=== PATIENT | male | born 1985 | race Caucasian/White ===

== ENCOUNTER 2018-12-21 13:15 | Observation (INO) | payer BC ==
[~2018-12-21 13:15] MED LIST: DEXAMETHASONE SOD PHOSPHATE INJ 4 MG/1 ML VIAL ONE; GLYCOPYRROLATE 1 MG/5 ML SYRINGE ONE; NEOSTIGMINE METHYLSULFATE 10 MG/10 ML VIAL ONE; ONDANSETRON HCL INJ/PF 4 MG/2 ML SDV ONE; ROCURONIUM BROMIDE INJ 50 MG/5 ML VIAL IV ONE; SUCCINYLCHOLINE CHLORIDE INJ 200 MG/10 ML VIAL ONE
[2018-12-21] MEDS ORDERED: NORMAL SALINE 1000 ML 1,000 ML IV ONE (15:30)
[2018-12-21] MEDS ORDERED: ONDANSETRON HCL INJ/PF 4 MG/2 ML SDV IV ONE ×2 (15:30→20:17)
[2018-12-21] MEDS ORDERED: MORPHINE SULFATE 10 MG/ML INJ IV ONE ×2 (15:31→20:17)
--- NOTE | 2018-12-21 15:33 | ER Document Report ---
Addendum entered and electronically signed by SLIM DEL ROSARIO PA-C 12/21/18 17:29: History of Present Illiness - HPI HPI: After reassessing the patient's general abdominal pain after labs resulted with a leukocytosis of 13.6. Patient states his pain is now moved to his right lower quadrant. Patient is denying any pain left lower quadrant or periumbilical at this time. Discussed use of CT imaging at this time. Patient is agreeable with plan. Original Note: ED Medical Screen (RME) - General Chief Complaint: Abdominal Pain Stated Complaint: ABDOMINAL PAIN Time Seen by Provider: 12/21/18 15:30 Notes: Patient is a 33-year-old male presents to the emergency department for generalized left periumbilical abdominal pain that started last night. Patient states he is nauseated but has not vomited. Patient states initially he felt as though he was constipated. Stating he took aakw-dxu-[id number] laxatives. States he was able to have a bowel movement today. Patient does have a history of colitis and states the left periumbilical abdominal pain does feel like the same pain when he had colitis. ABDOMEN: Soft, Non-distended. Bowel sounds present in all 4 quadrants. Generalized periumbilical and left periumbilical to left lower abdominal pain no McBurney's point tenderness, no Barfield sign noted I have greeted and performed a rapid initial assessment of this patient. A comprehensive ED assessment and evaluation of the patient, analysis of test results and completion of the medical decision making process will be conducted by additional ED providers. TRAVEL OUTSIDE OF THE [place] IN LAST 30 DAYS: No - Related Data Allergies/Adverse Reactions: No Known Allergies Allergy (Verified 12/21/18 13:17) Past Medical History - Social History Chew tobacco use (# tins/day): No Frequency of alcohol use: Occasional Drug Abuse: Marijuana Renal/ Medical History: Denies: Hx Peritoneal Dialysis Psychiatric Medical History: Reports: Hx Depression - anxiety Physical Exam - Vital signs Vitals: Temp Pulse Resp BP Pulse Ox 97.4 F 77 18 126/76 H 98 12/21/18 13:30 12/21/18 13:30 12/21/18 13:30 12/21/18 13:30 12/21/18 13:30 Course - Vital Signs Vital signs: Temp Pulse Resp BP Pulse Ox 97.4 F 77 18 126/76 H 98 12/21/18 13:30 12/21/18 13:30 12/21/18 13:30 12/21/18 13:30 12/21/18 13:30
[2018-12-21 16:52] LABS: APPEARANCE,URINE CLEAR; BILIRUBIN,URINE NEGATIVE (NEGATIVE); COLOR,URINE STRAW; GLUCOSE, URINE NEGATIVE (NEGATIVE); KETONES,URINE 20 mg/dL (NEGATIVE); LEUKOCYTE ESTERASE,URINE NEGATIVE (NEGATIVE); NITRITE,URINE NEGATIVE (NEGATIVE); PROTEIN,URINE NEGATIVE (NEGATIVE); URINE SPECIFIC GRAVITY 1.005; UROBILINOGEN,URINE NEGATIVE mg/dL (<2.0)
[2018-12-21 16:54] LABS: ABSOLUTE EOSINOPHILS # (AUTO) 0.1 10^3/uL (0.0-0.6); ABSOLUTE LYMPHOCYTES (AUTO) 1.7 10^3/uL (0.5-4.7); ABSOLUTE MONOCYTES (AUTO) 0.7 10^3/uL (0.1-1.4); ABSOLUTE NEUT (AUTO) 11.1 10^3/uL (1.7-8.2); BASOPHILS % (AUTO) 0.3 % (0-2); EOSINOPHILS % (AUTO) 0.7 % (0-6); HEMATOCRIT 47.5 % (37.9-51.0); HEMOGLOBIN 16.4 g/dL (13.5-17.0); LYMPHOCYTES % (AUTO) 12.5 % (13-45); MEAN CORPUSCULAR HEMOGLOBIN 28.8 pg (27.0-33.4); MEAN CORPUSCULAR HGB CONC 34.5 g/dL (32.0-36.0); MEAN CORPUSCULAR VOLUME 83 fl (80-97); MONOCYTES % (AUTO) 4.9 % (3-13); PLATELET COUNT 239 10^3/uL (150-450); RED CELL DISTRIBUTION WIDTH 12.5 % (11.5-14.0); SEGMENTED NEUTROPHILS % (AUTO) 81.6 % (42-78); TOTAL CELLS COUNTED % (AUTO) 100 %; WHITE BLOOD COUNT 13.6 10^3/uL (4.0-10.5)
[2018-12-21 17:11] LABS: ALANINE AMINOTRANSFERASE 12 U/L (21-72); ALBUMIN 5.3 g/dL (3.5-5.0); ALKALINE PHOSPHATASE 81 U/L (38-126); ANION GAP 12 (5-19); ASPARTATE AMINO TRANSFERASE 22 U/L (17-59); BILIRUBIN,DIRECT 0.3 mg/dL (0.0-0.4); BILIRUBIN,TOTAL 1.7 mg/dL (0.2-1.3); BLOOD UREA NITROGEN 8 mg/dL (7-20); CALCIUM 9.9 mg/dL (8.4-10.2); CARBON DIOXIDE 28 mmol/L (22-30); CHLORIDE 103 mmol/L (98-107); GLUCOSE 96 mg/dL (75-110); POTASSIUM 4.3 mmol/L (3.6-5.0); SODIUM 143.4 mmol/L (137-145); TOTAL PROTEIN 8.4 g/dL (6.3-8.2)
--- NOTE | 2018-12-21 18:09 | RADIOLOGY REPORT (SQ) ---
EXAM DESCRIPTION: CT ABD/PELVIS WITH IV ONLY COMPLETED DATE/TIME: 12/21/2018 5:45 pm REASON FOR STUDY: RLQ pain COMPARISON: None. TECHNIQUE: CT scan of the abdomen and pelvis performed using helical scanning technique with dynamic intravenous contrast injection. No oral contrast. Images reviewed with lung, soft tissue, and bone windows. Reconstructed coronal and sagittal MPR images reviewed. Delayed images for evaluation of the urinary system also acquired. All images stored on PACS. All CT scanners at this facility use dose modulation, iterative reconstruction, and/or weight based d osing when appropriate to reduce radiation dose to as low as reasonably achievable (ALARA). [facility]: Dose Right [facility]: CareDose [facility]: Dose Right [facility]: Teradose 4D [facility]: [place] CONTRAST TYPE AND DOSE: contrast/concentration: Isovue 350.00 mg/ml; Total Contrast Delivered: 91.0 ml; Total Saline Delivered: 47.0 ml RENAL FUNCTION: BUN 8 creatinine 0.84 RADIATION DOSE: CT Rad equipment meets quality standard of care and radiation dose reduction techniq ues were employed. CTDIvol: 13.2 - 17.4 mGy. DLP: 1746 mGy-cm.. LIMITATIONS: None. FINDINGS: LOWER CHEST: No significant findings. No nodules or infiltrates. LIVER: Normal size. No masses. No dilated ducts. SPLEEN: Normal size. No focal lesions. PANCREAS: No masses. No significant calcifications. No adjacent inflammation or peripancreatic fluid collections. Pancreatic duct not dilated. GALLBLADDER: No identified stones by CT criteria. No inflammatory changes to suggest cholecystitis. ADRENAL GLANDS: No significant masses or asymmetry. RIGHT KIDNEY AND URETER: No solid masses. No significant calcifications. No hydronephrosis or hyd roureter. LEFT KIDNEY AND URETER: No solid masses. No significant calcifications. No hydronephrosis or hydr oureter. AORTA AND VESSELS: No aneurysm. No dissection. Renal arteries, SMA, celiac without stenosis. RETROPERITONEUM: No retroperitoneal adenopathy, hemorrhage or masses. BOWEL AND PERITONEAL CAVITY: No masses or inflammatory changes. No free fluid or peritoneal masses. APPENDIX: Not identified. PELVIS: No mass. No free fluid. Normal bladder. ABDOMINAL WALL: No masses. No hernias. BONES: No significant or acute findings. OTHER: No other significant finding. IMPRESSION: NO SIGNIFICANT OR ACUTE FINDING IN THE ABDOMEN OR PELVIS ON CT SCAN WITH IV CONTRAST. TECHNICAL DOCUMENTATION: JOB ID: [id number] Quality ID # [id number]: Final reports with documentation of one or more dose reduction techniques (e.g., Au tomated exposure control, adjustment of the mA and/or kV according to patient size, use of iterative reconstruction technique) 2010 [employer]- All Rights Reserved Reading location - IP/workstation name: [email or web address]
[2018-12-21] MEDS ORDERED: RINGERS SOLUTION,LACTATED 1,000 ML IV ONE (19:15)
--- NOTE | 2018-12-21 19:57 | PDOC H&P ---
History of Present Illness Patient complains of: Abdominal pain History of Present Illness: MARY JO BATRES is a 33 year old male Is brought to the emergency department by ground transportation complaining a of a 1 day history of abdominal pain. This is associated with anorexia and some nausea but no vomiting. Patient thought he was constipated took laxatives without improvement. The pain was initially lower quadrant and periumbilical then radiated to the right lower quadrant. Patient was seen in the emergency department where he was found to have significant right lower quadrant tenderness and a leukocytosis of 13,000. A CT scan of the abdomen and pelvis was performed with no oral contrast which was interpreted as no significant pathology. Because of persisting right lower quadrant tenderness despite rece iving pain medication earlier in the afternoon, the emergency department consulted Dr. Hunt who evaluated the CT scan and thought that in fact the appendix was enlarged in a retrocecal position. He evaluated the patient and felt the patient did have acute appendicitis and recommended admission and operation. Past Medical History Past Medical History: Anxiety Psychiatric Medical History: Reports: Depression - anxiety Past Surgical History Past Surgical History: Reports: None Social History Smoking Status: Current Every Day Smoker Hx Recreational Drug Use: No Hx Prescription Drug Abuse: No Family History Parental Family History Reviewed: Yes Children Family History Reviewed: Yes Sibling(s) Family History Reviewed.: Yes Medication/Allergy Home Medications: Fluoxetine HCl 10 mg PO BID 12/21/18 Allergies/Adverse Reactions: No Known Allergies Allergy (Verified 12/21/18 13:17) Review of Systems Constitutional: PRESENT: as per HPI Eyes: ABSENT: visual disturbances Ears: ABSENT: hearing changes Genitourinary: ABSENT: dysuria, hematuria Musculoskeletal: ABSENT: joint swelling Integumentary: ABSENT: rash, wounds Neurological: ABSENT: abnormal gait, abnormal speech, confusion, dizziness, focal weakness, syncope Hematologic/Lymphatic: ABSENT: easy bleeding, easy bruising Physical Exam Vital Signs: Temp Pulse Resp BP Pulse Ox 97.4 F 77 18 126/76 H 98 12/21/18 13:30 12/21/18 13:30 12/21/18 13:30 12/21/18 13:30 12/21/18 13:30 Intake & Output 12/20/18 12/21/18 12/22/18 06:59 06:59 06:59 Intake Total 1999 Balance 1999 Weight 96.5 kg General appearance: PRESENT: mild distress, other - Anxious Head exam: PRESENT: normocephalic Eye exam: PRESENT: EOMI Mouth exam: PRESENT: dry mucosa Neck exam: PRESENT: full ROM Respiratory exam: PRESENT: clear to auscultation nishant Cardiovascular exam: PRESENT: RRR Pulses: PRESENT: normal carotid pulses, normal radial pulses, normal femoral pulses GI/Abdominal exam: PRESENT: other - Soft not distended right lower quadrant tenderness with guarding Rectal exam: PRESENT: deferred, other Extremities exam: PRESENT: full ROM Musculoskeletal exam: PRESENT: full ROM Neurological exam: PRESENT: oriented to person, oriented to place, oriented to time, oriented to situation Psychiatric exam: PRESENT: appropriate affect Results Laboratory Results: 12/21/18 16:19 12/21/18 16:19 12/21/18 12/21/18 12/21/18 16:19 16:19 16:19 WBC 13.6 H RBC 5.70 H Hgb 16.4 Hct 47.5 MCV 83 MCH 28.8 MCHC 34.5 RDW 12.5 Plt Count 239 Seg Neutrophils % 81.6 H Lymphocytes % 12.5 L Monocytes % 4.9 Eosinophils % 0.7 Basophils % 0.3 Absolute Neutrophils 11.1 H Absolute Lymphocytes 1.7 Absolute Monocytes 0.7 Absolute Eosinophils 0.1 Absolute Basophils 0.0 Sodium 143.4 Potassium 4.3 Chloride 103 Carbon Dioxide 28 Anion Gap 12 BUN 8 Creatinine 0.84 Est GFR ( Amer) > 60 Est GFR (Non-Af Amer) > 60 Glucose 96 Calcium 9.9 Total Bilirubin 1.7 H AST 22 ALT 12 L Alkaline Phosphatase 81 Total Protein 8.4 H Albumin 5.3 H Lipase Urine Color STRAW Urine Appearance CLEAR Urine pH 5.0 Ur Specific [place] 1.005 Urine Protein NEGATIVE Urine Glucose (UA) NEGATIVE Urine Ketones 20 H Urine Blood SMALL H Urine Nitrite NEGATIVE Ur Leukocyte Esterase NEGATIVE Urine WBC (Auto) 0 Urine RBC (Auto) 0 12/21/18 16:19 WBC RBC Hgb Hct MCV MCH MCHC RDW Plt Count Seg Neutrophils % Lymphocytes % Monocytes % Eosinophils % Basophils % Absolute Neutrophils Absolute Lymphocytes Absolute Monocytes Absolute Eosinophils Absolute Basophils Sodium Potassium Chloride Carbon Dioxide Anion Gap BUN Creatinine Est GFR ( Amer) Est GFR (Non-Af Amer) Glucose Calcium Total Bilirubin AST ALT Alkaline Phosphatase Total Protein Albumin Lipase 72.2 Urine Color Urine Appearance Urine pH Ur Specific [place] Urine Protein Urine Glucose (UA) Urine Ketones Urine Blood Urine Nitrite Ur Leukocyte Esterase Urine WBC (Auto) Urine RBC (Auto) Impressions: Abdomen/Pelvis CT 12/21/18 17:25 IMPRESSION: NO SIGNIFICANT OR ACUTE FINDING IN THE ABDOMEN OR PELVIS ON CT SCAN WITH IV CONTRAST. Assessment & Plan - Diagnosis (1) Acute abdominal pain Is this a current diagnosis for this admission?: Yes Plan: Pression: Acute onset abdominal pain now localized to the right lower quadrant, with localized tenderness, leukocytosis, and nonenhanced CT scan findings concerning for acute appendicitis; no evidence of rupture or phlegmon or free air. Recommendations: 1. I reviewed my impression, and the explanation for my believe the patient has acute appendicitis. This was discussed with the patient and his mother. I recommended admission and interval appendectomy. 2. We will therefore set him up for laparoscopic, possible open appendectomy, [facility], this evening, general anesthesia. The risk benefits alternatives to the planned procedure plan the patient and his mother. They expressed understanding and agreed to proceed. - Time Time Spent: 30 to 50 Minutes Critical Time spent with patient: Less than 15 minutes Medications reviewed and adjusted accordingly: Yes Anticipated discharge: Home - Inpatient Certification Based on my medical assessment, after consideration of the patient's comorbidities, presenting symptoms, or acuity I expect that the services needed warrant INPATIENT care.: Yes I certify that my determination is in accordance with my understanding of Medicare's requirements for reasonable and necessary INPATIENT services [42 CFR 412.3e].: Yes Medical Necessity: Need For IV Fluids, Need for Pain Control, Need for IV Antibiotics, Need for Surgery
[2018-12-21] MEDS ORDERED: AMPICILLIN SODIUM/SULBACTAM NA 3 GM in NORMAL SALINE 100 ML IV ONE (19:58)
[2018-12-21] MEDS ORDERED: RINGERS SOLUTION,LACTATED 1,000 ML IV PRN (19:58)
[2018-12-21] MEDS ORDERED: BUPIVACAINE HCL 0.25 % INJ/PF (2.5 MG/1 ML) 30 ML VIAL ONE (20:30)
--- NOTE | 2018-12-21 20:54 | ER Document Report ---
Entered by CRISTIAN RODRIGUEZ SCRIBE 12/21/181924 Acting as scribe for:MARK JJ DO ED GI/ - General Chief Complaint: Abdominal Pain Stated Complaint: ABDOMINAL PAIN Time Seen by Provider: 12/21/18 15:30 Mode of Arrival: Ambulatory Information source: Patient Notes: 33-year-old male who presents to the emergency department today with complaints of abdominal pain with nausea and diarrhea. Patient states that his pain began last night and he took some milk of magnesia because he thought that he was constipated. Patient states he has had a little diarrhea since the milk of magnesia but not much. Patient states he has not vomited. Patient denies any recent camping or foreign travel. Patient states he has had colitis in the past and his pain today feels somewhat similar to that. Patient states at that time he had a colonoscopy which did not reveal anything concerning. TRAVEL OUTSIDE OF THE [place] IN LAST 30 DAYS: No - Related Data Allergies/Adverse Reactions: No Known Allergies Allergy (Verified 12/21/18 13:17) Past Medical History - General Information source: Patient - Social History Smoking Status: Current Every Day Smoker Cigarette use (# per day): Yes Chew tobacco use (# tins/day): No Frequency of alcohol use: Occasional Drug Abuse: Marijuana Lives with: Family Family History: Reviewed & Not Pertinent Patient has suicidal ideation: No Patient has homicidal ideation: No Psychiatric Medical History: Reports: Hx Depression - anxiety Surgical Hx: Negative Review of Systems - Review of Systems Constitutional: No symptoms reported EENT: No symptoms reported Cardiovascular: No symptoms reported Respiratory: No symptoms reported Gastrointestinal: See HPI, Abdominal pain, Diarrhea, Nausea. denies: Vomiting Genitourinary: No symptoms reported Male Genitourinary: No symptoms reported Musculoskeletal: No symptoms reported Skin: No symptoms reported Hematologic/Lymphatic: No symptoms reported Neurological/Psychological: No symptoms reported -: Yes All other systems reviewed and negative Physical Exam - Vital signs Vitals: Temp Pulse Resp BP Pulse Ox 97.4 F 77 18 126/76 H 98 12/21/18 13:30 12/21/18 13:30 12/21/18 13:30 12/21/18 13:30 12/21/18 13:30 Interpretation: Normal - General General appearance: Alert, Other - appears uncomfortable - HEENT Head: Normocephalic, Atraumatic Eyes: Normal Pupils: PERRL - Respiratory Respiratory status: No respiratory distress Chest status: Nontender Breath sounds: Normal Chest palpation: Normal - Cardiovascular Rhythm: Regular Heart sounds: Normal auscultation Murmur: No - Abdominal Inspection: Normal Distension: No distension Tenderness: Tender - RLQ>LLQ, McBurney's point. No: Guarding, Rebound Organomegaly: No organomegaly - Back Back: Normal, Nontender - Extremities General upper extremity: Normal inspection, Nontender, Normal color, Normal ROM, Normal temperature General lower extremity: Normal inspection, Nontender, Normal color, Normal ROM, Normal temperature, Normal weight bearing. No: Taran's sign - Neurological Neuro grossly intact: Yes Cognition: Normal Orientation: AAOx4 [place] Coma Scale Eye Opening: Spontaneous [place] Coma Scale Verbal: Oriented Tabitha Coma Scale Motor: Obeys Commands [place] Coma Scale Total: 15 Speech: Normal Motor strength normal: LUE, RUE, LLE, RLE Sensory: Normal - Psychological Associated symptoms: Normal affect, Normal mood - Skin Skin Temperature: Warm Skin Moisture: Dry Skin Color: Normal Course - Re-evaluation Re-evalutation: 12/21/18 19:[address] Hunt who will come down to see the patient 12/21/18 19:30 Patient is a 33-year-old male who began having abdominal pain and nausea last night. Pain is localized to his right lower quadrant. He is tender in that area and is beginning to have nausea again. Patient also with leukocytosis. Called Dr. Hunt from surgery who has come down to see the patient we have discussed in person the probable diagnosis of appendicitis. Patient has been made n.p.o., fluid resuscitated, and pain and nausea medication have been ordered for him. Stable at the time of admission. Patient and mother agree with plan. - Vital Signs Vital signs: Temp Pulse Resp BP Pulse Ox 97.8 F 75 19 135/80 H 99 12/21/18 20:31 12/21/18 20:31 12/21/18 20:31 12/21/18 20:31 12/21/18 20:31 - Laboratory Result Diagrams: 12/21/18 16:19 12/21/18 16:19 Laboratory results interpreted by me: 12/21/18 12/21/18 12/21/18 16:19 16:19 16:19 WBC 13.6 H RBC 5.70 H Seg Neutrophils % 81.6 H Lymphocytes % 12.5 L Absolute Neutrophils 11.1 H Total Bilirubin 1.7 H ALT 12 L Total Protein 8.4 H Albumin 5.3 H Urine Ketones 20 H Urine Blood SMALL H - Diagnostic Test Radiology reviewed: Image reviewed, Reports reviewed Critical Care Note - Critical Care Note Total time excluding time spent on procedures (mins): 35 - Evaluation and management of surgical abdomen, diagnosis of probable appendicitis, consultation with surgery, coordination of admission, counseling patient and family Discharge - Discharge Clinical Impression: Appendicitis Qualifiers: Appendicitis type: acute appendicitis Acute appendicitis type: unspecified acute appendicitis type Qualified Code(s): K35.80 - Unspecified acute appendicitis Condition: Stable Disposition: ADMITTED INPATIENT I personally performed the services described in the documentation, reviewed and edited the documentation which was dictated to the scribe in my presence, and it accurately records my words and actions.
[2018-12-21] MEDS ORDERED: MIDAZOLAM 2 MG/2 ML INJ ONE (21:21)
[2018-12-21] MEDS ORDERED: FENTANYL CITRATE INJ/PF 250 MCG/5 ML AMPULE ONE (21:21)
[2018-12-21] MEDS ORDERED: PROPOFOL INJ 200 MG/20 ML VIAL IV ONE (21:22)
[2018-12-21] MEDS ORDERED: HYDROMORPHONE HCL INJ/PF 2 MG/ML AMPULE ONE (21:22)
[2018-12-21] MEDS ORDERED: ACETAMINOPHEN 1,000 MG/100 ML RTUPB IV ONE (21:22)
[2018-12-21] MEDS ORDERED: FENTANYL CITRATE INJ/PF 100 MCG/2 ML AMPUL IV PRN ×3 (21:55)
[2018-12-21] MEDS ORDERED: MORPHINE SULFATE 10 MG/ML INJ IV PRN (21:55)
[2018-12-21] MEDS ORDERED: MEPERIDINE HCL/PF INJ 25 MG/1 ML DISP.SYRIN IV PRN (21:55)
[2018-12-21] MEDS ORDERED: PROMETHAZINE HCL INJ 25 MG/1 ML VIAL IV PRN (21:55)
[2018-12-21] MEDS ORDERED: DIPHENHYDRAMINE HCL 50 MG/ML VIAL IV PRN (21:55)
[2018-12-21] MEDS ORDERED: KETOROLAC TROMETHAMINE 10 MG TABLET PO PRN (22:11)
[2018-12-21] MEDS ORDERED: ONDANSETRON HCL INJ/PF 4 MG/2 ML SDV IV PRN (22:11)
--- NOTE | 2018-12-21 22:17 | Operative Report ---
Operative Report DATE OF SURGERY: 12/21/18 PREOPERATIVE DIAGNOSIS: Acute appendicitis POSTOPERATIVE DIAGNOSIS: Same acute suppurative appendicitis OPERATION: Laparoscopic appendectomy SURGEON: SUKHDEV BOWER ANESTHESIA: GA TISSUE REMOVED OR ALTERED: 1 appendix COMPLICATIONS: none ESTIMATED BLOOD LOSS: scant INTRAOPERATIVE FINDINGS: See below PROCEDURE: Patient was taken the preop holding area the main operating where general anesthesia was induced. Right arm extended left arm tucked abdomen was exposed, prepped and draped in sterile fashion. Surgical plan surgical timeout were conducted. Instrumentation set for laparoscopic appendectomy. Skin was anesthetized at the supraumbilical, suprapubic and left lower quadrants. A vertical incision was made above the umbilicus, Veress needle inserted the peritoneal cavity pneumoperitoneum was established. Veress needle removed 5 mm port was inserted and a 5 mm scope was inserted. Findings are significant for neuro purulent discharge in the right lower quadrant. No evidence of perforation. 2 additional ports were placed one 5 mm super umbilical position and a 12 mm left lower quadrant. The appendix was grasped with a grasper elevated cephalad and towards the anterior abdominal wall, and the retroperitoneum opened posteriorly and inferiorly to the appendix which was now free in the peritoneal space. It was acutely inflamed and early separation. We opened up the mesentery of the appendix medially, now brought onto the field a 45 mm blue load endostapler. The appendix including the mesoappendix was amputated at its base. The appendix was placed in Endobag brought the patient to the left lower quadrant port site. We returned the peritoneal cavity check bleeding there was none. Staple line looked excellent. Photographs taken. The right lower quadrant was irrigated briefly and minimally. Patient was level now and residual fluid aspirated. At this point felt the operation was complete. Sponge and needle counts are correct. All ports removed under direct visualization, pneumoperitoneum was evacuated, and wounds closed with 3-0 Vicryl benzoin and Steri-Strips Patient tolerated procedure well, extubated, and taken to recovery in stable condition.
[2018-12-21] MEDS: MEPERIDINE HCL/PF INJ 25 MG/1 ML DISP.SYRIN ONE ×2 (22:24→22:29)
[2018-12-21] MEDS ORDERED: ONDANSETRON HCL INJ/PF 4 MG/2 ML SDV ONE (22:52)
[2018-12-21] MEDS: KETOROLAC TROMETHAMINE INJ/PF 30 MG/1 ML SDV IV PRN (23:40)
[2018-12-22] MEDS: KETOROLAC TROMETHAMINE INJ/PF 30 MG/1 ML SDV IV PRN (06:05)
[2018-12-22 09:44] VITALS: BP 135/80
--- NOTE | 2018-12-22 14:08 | DISCHARGE SUMMARY E ---
Discharge Summary NAME: MARY JO BATRES : 1985 AGE: 33Y ADMITTED: 12/21/2018 DISCHARGED: 12/22/2018 FINAL DIAGNOSIS: Acute appendicitis. PROCEDURE DONE: Laparoscopic appendectomy, 12/21/2018, Dr. Hunt, surgeon. HOSPITAL COURSE: This is a 33-year-old male with abdominal pains. Patient noted to have a slightly elevated white count and tender in the right lower quadrant. He then underwent laparoscopic appendectomy for acute appendicitis done by Dr. Hunt on admission on 12/21/2018. The patient did well postoperatively and able to tolerate soft diet on the day of discharge, 12/22/2018, and the patient feels that he can take aspirin or Tylenol p.r.n. for pain. No prescription was given to the patient. Patient advised that he can shower, but no lifting more than 10 to 15 pounds for the next week or two. Followup arrangements will be made for him to be followed up in the clinic in 1 to 2 weeks. DICTATING PHYSICIAN: OMID CABAN M.D. [id number] PHY#: [id number] ID: [id number] JOB#: [id number] ACCT: [id number] cc:Destin BEASLEY MD, M.D. [facility],
== END 2018-12-22 10:51 | disposition home or self-care (01) ==
LOC: ER 13:15 → EH 20:20 → 4W 23:28
PROVIDERS: ATTEND Surgery
PROC: 0DTJ4ZZ Resection of Appendix, Percutaneous Endoscopic Approach (ICD-10-PCS; principal; 2018-12-21 21:45)
DX: K35.80 Unspecified acute appendicitis (principal); F12.10 Cannabis abuse, uncomplicated; F17.210 Nicotine dependence, cigarettes, uncomplicated; Z87.19 Personal history of other diseases of the digestive system
CPT/HCPCS: 44970; 96376; 99291; 96361; 96374; 96375; 36415; 83690; 85025; 80053; 81001; 88304 ×2; 74177; G0378 ×2; J2250; J3490 ×2; J1100; J3010; J0295; J2175; J1885 ×2; J2270; J0330; J2405; J7030; J7120; J2704; J0131; 840; 96360; J1170